=== PATIENT | female | born 1975 | race Caucasian/White ===

== ENCOUNTER 2016-06-30 06:39 | Emergency (ER) ==
[2016-06-30] MEDS ORDERED: ZOFRAN ODT PO ONE (07:21)
[2016-06-30] MEDS ORDERED: TAMIFLU PO ONE (07:21)
[2016-06-30 07:42] VITALS: BP 155/93
--- NOTE | 2016-06-30 07:50 | PROVIDER DOCUMENTATION ---
HPI-Respiratory General - General Chief Complaint: Flu Symptoms Stated Complaint: FLU LIKE SX Time Seen by Provider: 06/30/16 06:42 Source: patient Allergies/Adverse Reactions: Patient Allergies Allergy/AdvReac Type Severity Reaction Status Date / Time Latex, Natural Rubber Allergy HIVES Verified 06/30/16 07:17 prednisone Allergy FATIGUE Verified 06/30/16 07:17 Home Medications: Dm/P-Ephed/Acetaminoph/Doxylam [Nyquil D Cold & Flu Liquid] 295 ml PO HS - History of Present Illness-Resp Nature of Presenting Problem: Flu symptoms started 2 days ago. Reports N/V/D/aching all over/fever/chills/ cough/sneezing. Reports no CP/SOB and no other concerns. Son had flu recently. Quality of Pain: reports: aching Severity in ED: reports: moderate Onset/Duration: reports: 2 days ago Timing: reports: still present Context: denies: recent chemotherapy, recent URI Exposure: reports: unknown cause Cough Quality/Degree: reports: no cough Episode Frequency: no prior episodes Current Respiratory Medication Therapy: Initiated none Modifying Factors: improves with: nothing Associated Symptoms: reports: flu-like symptoms, nasal congestion, nasal drainage. denies: chest pain/soreness, dizziness, earache, facial pain, headache, shortness of breath, sore throat, sweaty Similar Symptoms Previously?: No Recently seen or treated by another doctor?: No Review of Systems - Adult - REVIEW OF SYSTEMS - ADULT Constitutional: reports: see HPI, chills, fever, fatique Eyes: reports: no symptoms reported Ears, Nose, Mouth & Throat: reports: no symptoms reported Cardiovascular: reports: no symptoms reported Respiratory: reports: no symptoms reported, cough. denies: shortness of breath , wheezing Gastrointestinal: reports: see HPI, nausea, vomiting. denies: abdominal pain Genitourinary: reports: no symptoms reported Musculoskeletal: reports: no symptoms reported Integumentary: reports: no symptoms reported Neurological: reports: no symptoms reported Psychiatric: reports: no symptoms reported Endocrine: reports: no symptoms reported Hematologic/Lymphatic: reports: no symptoms reported Allergic/Immunologic: reports: no symptoms reported All Other Systems: Reviewed and Negative Past History - Adult - PAST MEDICAL HISTORY-ADULT Major Childhood Illnesses: reports: denies history Cardiovascular: reports: denies history Respiratory: reports: denies history Gastrointestinal: reports: denies history Obstetrical/Gynecological: reports: denies history Genitourinary: reports: denies history Musculoskeletal: reports: denies history Neurological: reports: denies history Endocrine/Immune: reports: denies history Other Conditions: reports: denies history - PRIOR SURGERIES/PROCEDURES Surgical/Procedure History: reports: appendectomy, BTL, , tonsillectomy - IMMUNIZATION STATUS Childhood Immunizations: See Nurse Assessment Flu Vaccine: See Nurse Assessment Physical Exam-General - PHYSICAL EXAM-ADULT Initial Vital Signs Reviewed: Yes - CONSTITUTIONAL General Appearance: alert, no apparent distress - EYES Eyes: PERRL/EOMI, pink conjunctivae - HEAD, EARS, NOSE, MOUTH & THROAT HENMT: normocephalic/atraumatic, moist mucous membranes - NECK Neck: non-tender, full range of motion, supple - RESPIRATORY Respiratory: chest non-tender, lungs clear, normal breath sounds, no pleuratic chest pain, no respiratory distress, no accessory muscle use - CARDIOVASCULAR Cardiovascular: normal peripheral pulses, regular rate, rhythm, no edema, no gallop - GASTROINTESTINAL (ABDOMEN) Abdominal Exam: normal bowel sounds, non tender, soft, no organomegaly - MUSCULOSKELETAL Back Exam: normal inspection - SKIN Integumentary: normal color, normal turgor, warm/dry - PSYCHIATRIC Psych/Mental Status: normal mood/affect, normal thought content, normal thought process, oriented x 3 Departure - Departure Time of Disposition Order: 07:50 DIAGNOSIS: Flu, Bronchitis Disposition: HOME 01 Certified Medical Emergency: Emergent Condition: Stable Additional Instructions: Follow up with regular MD in 2-3 days. Plenty of oral fluids and rest. Return to ER if your symptoms worsen. Prescriptions: Oseltamivir [Tamiflu] 75 mg PO BID #10 capsule Azithromycin [Zithromax Z-Abraham] 250 mg PO DIRECTED #1 pkg Ondansetron Odt [Zofran 8Mg Odt] 8 mg PO Q8H PRN PRN #10 tablet PRN Reason: Nausea And Vomiting Referrals: None,PCP [Primary Care Provider] - Forms: Return to School/Parent Work
== END 2016-06-30 08:13 | disposition home or self-care (01) ==
LOC: ED 06:39
DX: J11.1 Influenza due to unidentified influenza virus with other respiratory manifestations (principal); J40 Bronchitis, not specified as acute or chronic; R11.2 Nausea with vomiting, unspecified; R19.7 Diarrhea, unspecified; R09.81 Nasal congestion; R05 Cough; R06.7 Sneezing; R53.83 Other fatigue; R68.83 Chills (without fever)
CPT/HCPCS: 87804; 99283; S0181